=== PATIENT | male | born 1950 | race Caucasian/White ===

== ENCOUNTER 2017-01-25 13:41 | Emergency (ER) | payer OTHER ==
[~2017-01-25] VITALS: Ht 172.7 cm; Wt 97.5 kg
[2017-01-25 13:41] VITALS: BP_SYST 204
--- NOTE | 2017-01-25 13:41 | NUR ---
Placed in room 5 .
--- NOTE | 2017-01-25 13:50 | NUR ---
ER at bedside examining patient.
--- NOTE | 2017-01-25 13:56 | NUR ---
# 16 FR Ndiaye catheter with use of sterile technique. Immediate return of 600 cc clear urine noted. Bedside drainage bag placed below level of bladder. Pt tolerated procedure .leg bag placed
[2017-01-25 14:04] VITALS: BP_SYST 151
--- NOTE | 2017-01-25 14:09 | NUR ---
Patient given written and verbal discharge instructions and verbalizes understanding. ER MD discussed with patient the results and treatment provided. Patient in stable condition. ID arm band removed. Rx of 0 given. Patient educated on pain management and to follow up with PMD. Pain Scale 0/10 .
== END 2017-01-25 14:09 | disposition home or self-care (01) ==
LOC: SED 13:41
DX: R33.9 Retention of urine, unspecified (principal); I10 Essential (primary) hypertension
CPT/HCPCS: 99284